=== PATIENT | male | born 1990 | race Caucasian/White ===

== ENCOUNTER 2017-04-24 01:27 | Emergency (ER) | payer MEDICAID ==
[~2017-04-24] VITALS: Ht 182.9 cm; Wt 81.6 kg
[~2017-04-24 01:27] MED LIST: ALBUTEROL0.09 MG/A1 IH; AMOXICILLIN 50500 MG PO; BACTRIM DS 8001 TA1 PO; CIPRO 500MG TA500 MG PO; FLEXERIL10 MG PO; IBU-8800 MG PO; INDOCIN25 MG PO; KEFLEX 500MG.500 MG PO; LISINOPRIL20 MG PO; MOBIC7.5 MG PO; MOTRIN600 M1 PO; NOMEDS XX; PERCOCET 5/3251 EACH PO; PREDNISONE 20MG20 MG PO; PYRIDIUM 200MG200 MG PO; SERTRALINE 50MG50 MG PO; SULFAMETHOXAZOL1 TA6 PO; TRAZADONE HYDR100 MG PO; ZITHROMAX Z-PA250 M1 PO
--- NOTE | 2017-04-24 01:46 | Emergency Room Report ---
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 Clinical Suspician of Infection? Mental Status: Sepsis Risk: Have you (or family members/close friends) recently traveled outside the [place]? If Yes, where/when: Have you had exposure to infectious disease within the past month? TB? Other? Specify: Source patient, RN notes reviewed, family, old records Exam Limitations no limitations Comment pt with lt knee pain as he had twist injury today with post knee pain and popping sd - pt with pain with mov and wt bearing Cardiac Chest Pain Chest pain indicative of cardiac No Timing/Duration this evening Severity moderate ALLERGIES Coded Allergies: acetaminophen (From VICODIN) (01/25/16) hydrocodone (From VICODIN) (01/25/16) Home Medications Active Scripts SULFAMETHOXAZOLE W/TRIMETHOPRI (Bactrim Ds Tab) 1 TAB PO BID #20 TAB Prov: 04/13/16 SULFAMETHOXAZOLE W/TRIMETHOPRI (Bactrim Ds Tab) 1 TABLET PO BID #20 TAB Prov: 01/25/17 Reported Medications Lisinopril 20 MG PO DAILY #30 Sertraline Hcl (Sertraline 50MG) 50 MG PO DAILY #30 TAB History Medical History General CAD? No Angina: No [place]: No Hypertension? Yes Hyperlipidemia? No CHF? No DVT? No PE? No COPD? No Asthma? No Anemia? No GERD? No Gastric ulcers? No GI Bleed? No Hernia? No Thyroid Problems? No Hypothyroidism? No CVA? No Seizures? No Diabetes? No Renal Insuffiency? No End Stage Renal Disease? No UTI? No Stones? No BPH? No GB Disease: No Nephritic Syndrome? No Asplenia? No Hepatitis? No Sickle Cell Disease? No Arthritis? No Migraines? No Cataracts? No Glaucoma? No MRSA? No HIV? No TB? No Anxiety? Yes Depression? Yes Cancer? No More? No Immunization Hx DT/Tetanus < 1 Year Ago Surgical Hx Previous Surgery?N Social History Smoking Hx Packs/day < 1 Pack Alcohol Alcohol: No Drugs none Review of Systems All Other Systems Reviewed and Negative Constitutional denies fever Eyes denies drainage ENT denies: ear discharge, epistaxis, throat pain. Respiratory denies cough, denies shortness of breath, denies wheezing Cardiovascular denies chest pain, denies palpitations, denies syncope Gastrointestinal denies abdominal pain, denies diarrhea, denies vomiting Genitourinary denies: dysuria, frequency, hesitancy, hematuria. Musculoskeletal see HPI, denies back pain, joint pain, denies joint swelling, denies neck pain Skin denies rash Psychiatric/Neurological denies seizure Physical Exam Vital Signs Vital Signs Date Time Temp Pulse Resp B/P Pulse O2 O2 Flow FiO2 Ox Delivery Rate 04/24 0140 98.0 98 14 149/73 98 - WBC >12,000 or <4,000 or 10% bands? 2 or more SIRS Criteria Met? B/P:149/73 MAP:98 Creatinine >2.0? UA output<0.5ml/kg/hr for 2 hrs? Platelet count >100,000? Lactate >2.0mmol/1? INR >1.2 or PTT > than 60 sec? Evidence of Organ Dysfunction? Provider documented clinical suspician of infection? N Sepsis Criteria Count: 1 Sepsis Risk: Low Sepsis Risk General Appearance no apparent distress Eye Exam - bilateral eye PERRL, bilateral eye EOMI Ear, Nose, Throat normal ENT inspection Neck supple Respiratory Status No: respiratory distress. 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 No Departure Departure Time of Disposition 0154 Disposition DC Home or Self Care(routine) Clinical Impression Primary Impression: Left knee sprain Qualifiers: Encounter type: initial encounter Involved ligament of knee: unspecified ligament Qualified Code: S83.92XA - Sprain of unspecified site of left knee, initial encounter Condition STABLE Referrals TRINITY MORA (Family) Patient Instructions DI for Knee Sprain Additional Instructions wt bearing as suyapa and use meds as directed and see pcp for follow up Discharge Counseling Counseled pt/family regarding diagnosis, test results, medications/RX, follow up needs Prescriptions Current Visit Scripts Prednisone (Prednisone 20MG) 20 MG PO BID #10 TAB ED Critical Care Critical Care No at [id number]
[2017-04-24] MEDS ORDERED: PREDNISONE 20MG20 MG PO (01:55)
[2017-04-24 02:16] VITALS: BP 149/73
== END 2017-04-24 02:18 | disposition home or self-care (01) ==
LOC: ER 01:27
DX: S83.92XA Sprain of unspecified site of left knee, initial encounter (principal); X50.1XXA Overexertion from prolonged static or awkward postures, initial encounter; Z88.6 Allergy status to analgesic agent; Z88.5 Allergy status to narcotic agent; Z79.899 Other long term (current) drug therapy; I10 Essential (primary) hypertension

== ENCOUNTER 2017-05-26 16:19 | Emergency (ER) | payer MEDICAID ==
[~2017-05-26] VITALS: Ht 182.9 cm; Wt 86.2 kg
[2017-05-26] MEDS ORDERED: ZADITOR5 ML OP (16:40)
--- NOTE | 2017-05-26 16:52 | Urgent Treatment Center Report ---
History of Present Issue Date/Time Seen by Provider 05/26/17 1635 Visit Reason Pt arrived:Walked Presenting Problem:PT HAS HAD EYE DRAINAGE AND RT EAR FEELING STOPPED UP. NEEDS A REFILL ON HIS BP MEDICATION. Location if Accident: Onset of symptoms date/time:/ or onset unknown for:MEDICAL HX UNKNOWN Have you (or family members/close friends) recently traveled outside the [place]? N If Yes, where/when: Have you had exposure to infectious disease within the past month? TB? Other? Specify: States that he has been having alot of allergy symptoms but he has never been tested for allergies State that he has been having itchy watery eyes with drainage State that last week he felt like his ear was stopped up and couldn't hear out of it that well and wants to get his blood pressure medication refilled ALLERGIES Coded Allergies: acetaminophen (From VICODIN) (01/25/16) hydrocodone (From VICODIN) (01/25/16) Home Medications Reported Medications Lisinopril 20 MG PO DAILY #30 Sertraline Hcl (Sertraline 50MG) 50 MG PO DAILY #30 TAB History Medical History General CAD? No Angina: No [place]: No Hypertension? Yes Hyperlipidemia? No CHF? No DVT? No PE? No COPD? No Asthma? No Anemia? No GERD? No Gastric ulcers? No GI Bleed? No Hernia? No Thyroid Problems? No Hypothyroidism? No CVA? No Seizures? No Diabetes? No Renal Insuffiency? No UTI? No Stones? No BPH? No GB Disease: No Nephritic Syndrome? No Asplenia? No Hepatitis? No Sickle Cell Disease? No Arthritis? No Migraines? No Cataracts? No Glaucoma? No MRSA? No HIV? No TB? No Anxiety? Yes Depression? Yes Cancer? No More? No Immunization HX DT/Tetanus < 1 Year Ago Surgical Hx Previous Surgery?N Social History Smoking Hx Smoker: Current Every Day Smoker Tobacco: Yes Type Cigarettes Packs/day < 1 Pack Alcohol Alcohol: No Review of Systems All Other Systems Reviewed and Negative Eyes drainage ENT ear pain. Physical Exam Vital Signs Vital Signs Date Time Temp Pulse Resp B/P Pulse O2 O2 Flow FiO2 Ox Delivery Rate 05/26 1625 98.7 108 18 154/88 96 General Appearance normal appearance, WD/WN, no apparent distress Eye Exam - bilateral eye PERRL, bilateral eye EOMI Respiratory Status Yes: trachea midline, chest symmetrical, non tender chest. No: respiratory distress. Cardiovascular normal exam, regular rate/rhythm Neurologic alert, normal exam, oriented x 3 Comments drainage noted bilateral eyes, advised they feel itchy and watery Medical Decision Making LABS/Meds/Orders Pt receiving controlled substance in ED? No [facility] Progress Notes Comment [facility], advised that it had been close to a year since he had had blood pressure medication filled, patient informed that he would have to see family doctor for medication to be filled due to lenght of time that he has not taken the medication Departure Departure Time of Disposition 1636 Disposition DC Home or Self Care(routine) Clinical Impression Primary Impression: Seasonal allergies Qualifiers: Chronicity: unspecified Allergic rhinitis trigger: unspecified Qualified Code: J30.2 - Other seasonal allergic rhinitis Condition STABLE Referrals Pati Russell MD (Family): [facility] Patient Instructions Allergic Rhinitis, Nasal Filters May Improve Seasonal Allergy Symptoms Additional Instructions Follow up with family doctor Return if needed Follow up with [facility] for allergy testing Use drops as directed Discharge Counseling Counseled pt/family regarding diagnosis, medications/RX, home care, follow up needs Prescriptions Current Visit Scripts Ketotifen Fumarate (Zaditor) 1 DROP OP BID #1 ML one drop in eyes twice daily at [id number]
[2017-05-26 16:53] VITALS: BP 154/88
--- OUTSIDE RECORDS SUMMARY | 2017-05-29 12:35 | External Medical Summary Rpt | CCD ---
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 Gardner MD (ER) 3 22:33 3 00:50 [facility] EMERGENCY [address] DIMAS ISABEL 1 1 [facility] DEPARTMEN MED CTR T VISIT HIGH/URGE NT SEVERITY EMERGENCY 07381 ST DIMAS ISABEL 1 1 [facility] DEPARTMEN MED CTR T VISIT MODERATE SEVERITY [facility]OSP[facility] - 0 0 [facility]EN INC T EMERGENCY 99239 [facility] 0 0 [facility] DEPARTMEN INC T VISIT LOW/MODER SEVERITY EMERGENCY 23804 LORETTA [facility]U, [address] [facility] SERVICES O T VISIT MODERATE ASSOCIATE SEVERITY S EMERGENCY 36719 EMERGENCY JOCELYNN, 9 9 CARE PEGGY D DEPARTMEN PHYS T VISIT [facility] NT SEVERITY OFFICE 79017 FAMILY VICKIE, OUTPATIEN 9 9 CARE R MARIELLA T VISIT ASSOCIATE 15 S MINUTES OFFICE 41757 FAMILY VICKIE, OUTPATIEN 9 9 CARE R MARIELLA T VISIT ASSOCIATE 15 S MINUTES [facility] - 9 9 [facility] T OFFICE 79129 FAMILY VICKIE, OUTPATIEN 9 9 CARE R MARIELLA T VISIT ASSOCIATE 15 S MINUTES OFFICE 38607 FAMILY VICKIE, OUTPATIEN 8 8 CARE R MARIELLA T VISIT ASSOCIATE 15 S MINUTES OFFICE 56968 FAMILY VICKIE, OUTPATIEN 8 8 CARE R MARIELLA T VISIT ASSOCIATE 15 S MINUTES [facility]OSP[facility] - 8 8 [facility] OUTPATIEN INC T EMERGENCY 16170 [facility] 8 8 [facility] DEPARTMEN INC T VISIT LIMITED/M INOR PROB EMERGENCY 19996 MARCIA HESTER, 8 8 [facility] VISIT ON LOW/MODER SEVERITY [facility]OSPITAL [facility] - 8 8 [facility] OUTPATIEN INC T OFFICE 13968 FAMILY VICKIE, OUTPATIEN 8 8 CARE R MARIELLA T VISIT ASSOCIATE 25 S MINUTES OFFICE 83904 FAMILY VICKIE, OUTPATIEN 8 8 CARE R MARIELLA T VISIT ASSOCIATE 15 S MINUTES OFFICE 75644 FAMILY VICKIE, OUTPATIEN 8 8 CARE R MARIELLA T VISIT ASSOCIATE 15 S MINUTES [facility]OSP[facility] - 8 8 [facility] INC T OFFICE 99655 FAMILY VICKIE, OUTPATIEN 8 8 CARE R MARIELLA T VISIT ASSOCIATE 15 S MINUTES OFFICE 78924 FAMILY VICKIE, OUTPATIEN 8 8 CARE R MARIELLA T VISIT ASSOCIATE 15 S MINUTES OFFICE 02781 FAMILY VICKIE, OUTPATIEN 8 8 CARE R MARIELLA T VISIT ASSOCIATE 15 S MINUTES OFFICE 53346 FAMILY VICKIE, OUTPATIEN 8 8 CARE Kojo WOLFF T VISIT ASSOCIATE 15 S MINUTES EMERGENCY 40108 [facility] 8 8 [facility] DEPARTMEN INC T VISIT LOW/MODER SEVERITY [facility] - 8 8 [facility] OUTPATIEN INC T OFFICE 72057 BRITNEY MCKEON II, OUTPATIEN 8 8 ANTOLIN Stanley NEW 10 PSC MINUTES
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
--- OUTSIDE RECORDS SUMMARY | 2017-05-29 12:39 | External Medical Summary Rpt ---
Author Author [employer], SALVADOR Production Organization [employer] Address Unknown Phone Unavailable Results UA Observa Value Referen Units Interpr Notes Date tion ce etation Range UA Yellow No No No No Sep 08 Color informa informa informa informa 2017 tion in tion in tion in tion in 5:52 PM source source source source data data data data UA Clear Clear No No No Sep 08 Appear informa informa informa 2017 tion in tion in tion in 5:52 PM source source source data data data UA Negativ Negativ No No No Sep 08 Glucose e e informa informa informa 2017 tion in tion in tion in 5:52 PM source source source data data data UA Negativ Negativ No No No Sep 08 Ketones e e informa informa informa 2017 tion in tion in tion in 5:52 PM source source source data data data UA Negativ Negativ No No No Sep 08 Blood e e informa informa informa 2017 tion in tion in tion in 5:52 PM source source source data data data UA pH 7.0 5.0 - No No Referen Sep 08 8.0 informa informa ce 2017 tion in tion in range 5:52 PM source source valid data data for random specime ns only. UA Negativ Negativ No No No Sep 08 Protein e e informa informa informa 2017 tion in tion in tion in 5:52 PM source source source data data data UA 0.2 <=1 No No No Sep 08 Urobili E.U./dL E.U./dL informa informa informa 2017 nogen tion in tion in tion in 5:52 PM source source source data data data UA Negativ Negativ No No No Sep 08 Nitrite e e informa informa informa 2017 tion in tion in tion in 5:52 PM source source source data data data UA Leuk Negativ Negativ No No No Sep 08 Est e e informa informa informa 2017 tion in tion in tion in 5:52 PM source source source data data data UA Spec 1.010 1.001 - No No Referen Sep 08 Grav 1.035 informa informa ce 2017 tion in tion in range 5:52 PM source source valid data data for random specime ns only. Chlamyd/GC TMA Observa Value Referen Units Interpr Notes Date tion ce etation Range Chlamyd Negativ No No No No Sep 10 ia e informa informa informa informa 2017 trachom tion in tion in tion in tion in 10:57 atis source source source source AM data data data data Neisser Negativ No No No Testing Sep 10 ia e informa informa informa 2017 gonorrh tion in tion in tion in methodo 10:57 oeae source source source logy is AM data data data transcr iption mediate d amplifi cation (TMA) using the Aptima Combo 2 assay from [employer].\.br \A negativ e result does not complet alejandrina rule out a Chlamyd ia trachom atis or Neisser ia gonorrh oeae infecti on due to potenti al inhibit ors or levels present below the limit of detecti on by this assay. Results are depende nt on proper collect ion and transpo rt of specime n. This test is indicat ed for medical purpose s only and should not be used for legal or forensi c purpose s.\.br\ \.br\Th e perform ance charact eristic s of this test were validat ed by [facility] are laborat ory. This assay is FDA cleared to test the followi ng specime ns: clinici an-daksha ected endocer vical, vaginal and male urethra l swab specime ns, patient collect ed vaginal specime ns within a clinic setting , Thin Prep Specime ns in Preserv Cyt Solutio n, and first-s tream, unprese rved male urine specime ns. Testing on female urine is not FDA approve d by this methodo logy, but has been develop ed and validat ed by the [facility] are laborat ory. Detaile d methodo logy is availab le upon request . Lipid Scr Observa Value Referen Units Interpr Notes Date tion ce etation Range Cholest 188 <=200 mg/dL No < 200 Aug 13 dominga informa 2015 [Percen tion in 8:25 PM tile] source Desirab data le\.br\ 200 - 239 Borderl ine High\.b r\>= 240 High TRIGLYC 84 <=150 mg/dL No < 150 Aug 13 ERIDES. informa 2015 TOTAL tion in Normal\ 8:25 PM source .br\150 data - 199 Borderl ine High\.b r\200 - 499 High\.b r\ >= 500 Very High CHOLEST 41 >=40 mg/dL No > 60 Aug 13 EROLS.I informa 2014 N HDL tion in Optimal 8:25 PM source \.br\40 data - 60 Accepta ble\.br \ < 40 Low LDL 130 <=100 mg/dL High < 100 Aug 13 Calcula 2015 esther 8:25 PM Optimal \.br\10 0 - 129 Near or above optimal \.br\13 0 - 159 Borderl ine High\.b r\160 - 189 High\.b r\ >= 190 Very High Hemogram Observa Value Referen Units Interpr Notes Date tion ce etation Range LEUKOCY 8.2 4.0 - x10(3)/ No No Aug 13 FCO 11.0 mcL informa informa 2014 tion in tion in 7:53 PM source source data data Erythro 5.12 4.30 - x10(6)/ No No Aug 13 cytes 5.81 mcL informa informa 2014 [#/volu tion in tion in 7:53 PM me] in source source Blood data data by Automat ed count Hemoglo 16.8 13.5 - gm/dL No No Aug 13 bin 17.1 informa informa 2014 [Mass/v tion in tion in 7:53 PM olume] source source in data data Blood Hematoc 49.1 38.9 - % No Aug 13 rit 51.6 informa informa 2015 [Volume tion in tion in 7:53 PM source source Fractio data data n] of Blood by Automat ed count Erythro 95.9 82.5 - fL No Aug 13 cyte 99.8 informa informa 2015 mean tion in tion in 7:53 PM corpusc source source ular data data volume [Entiti c volume] by Automat ed count Erythro 32.9 27.0 - pg No Aug 13 cyte 34.3 informa informa 2014 mean tion in tion in 7:53 PM corpusc source source ular data data hemoglo bin [Entiti c mass] by Automat ed count Erythro 34.3 32.1 - gm/dL No Aug 13 cyte 35.3 informa informa 2015 mean tion in tion in 7:53 PM corpusc source source ular data data hemoglo bin concent ration [Mass/v olume] by Automat ed count Erythro 12.2 11.5 - % No Aug 13 cyte 15.0 informa informa 2014 distrib tion in tion in 7:53 PM ution source source width data data [Ratio] by Automat ed count Platele 265 144 - x10(3)/ No No Aug 13 ts 423 mcL informa informa 2014 [#/volu tion in tion in 7:53 PM me] in source source Blood data data by [employer] count MPV 8.6 6.8 - fL No Aug 13 10.8 informa informa 2014 tion in tion in 7:53 PM source source data data XR RIBS RIGHT W PA CHEST Observa Value Referen Units Interpr Notes Date tion ce etation Range RIGHT No No No No Feb 09 RIBS, informa informa informa informa 2012Feb 09, tion in tion in tion in tion in 4:23 PM 2012 source source source source 04:24:2 data data data data 9 PM\.br\ \.br\IN DICATIO NS: Pain.\. br\\.br \Right rib series shows no fractur e. There is no lytic lesion. There is no\.br\ costoph renic\. br\blun ting. There is no pneumot horax.\ .br\\.b r\IMPRE SSION:\ .br\1. Normal right rib series XR CHEST PA AND LATERAL Observa Value Referen Units Interpr Notes Date tion ce etation Range TEXT PA and No No No No Jan 29 DIAGNOS LATERAL informa informa informa informa 2011 IS CHEST tion in tion in tion in tion in 5:02 PM BATTERY DATED source source source source 01/30/20 data data data data 12COMPA RISON: 9HISTOR Y: Trauma, left-si ded painFIN DINGS:T he heart and mediast inal contour s are within normal limits. The lungs areclea r. Nopneum othorax or pleural effusio n is identif ied.IMP RESSION :Negati ve chest radiogr aphs. XR RIBS LEFT 2 VW Observa Value Referen Units Interpr Notes Date tion ce etation Range TEXT Left No No No No Jan 29 DIAGNOS rib informa informa informa informa 2012 IS series, tion in tion in tion in tion in 5:01 PM BATTERY 4 source source source source total data data data data images, dated 01/30/20 12COMPA RISON: NoneHIS TORY: Trauma, left rib painIMP RESSION :No displac ed fractur e or other signifi cant osseous abnorma lity identif iedin left-si ded ribs.
--- OUTSIDE RECORDS SUMMARY | 2017-05-29 12:39 | External Medical Summary Rpt | CCD ---
Demographics Preferred Language Nauruan Marital Status Unknown Pentecostalism Affiliation Unknown Race Unknown Ethnic Group Unknown Author Author , SALVADOR FRANCO Address Unknown Phone Immunization No patient found.
--- OUTSIDE RECORDS SUMMARY | 2017-05-29 12:39 | External Medical Summary Rpt ---
[...] using the Aptima Combo 2 assay from [employer].\.br \A negativ e result does not [...] of this test were validat ed by [facility] are laborat ory. This assay is FDA [...] develop ed and validat ed by the [facility] are laborat ory. Detaile d methodo logy [...]
--- OUTSIDE RECORDS SUMMARY | 2017-05-29 12:39 | External Medical Summary Rpt | CCD ---
Demographics Preferred Language Ken[place] Marital Status Unknown Tenriism Affiliation Unknown Race Unknown Ethnic Group Unknown Author Author , SALVADOR FRANCO Address Unknown Phone Immunization No patient found.
== END 2017-05-26 16:55 | disposition home or self-care (01) ==
LOC: UTC 16:19
DX: J30.2 Other seasonal allergic rhinitis (principal); I10 Essential (primary) hypertension; F41.8 Other specified anxiety disorders; F17.210 Nicotine dependence, cigarettes, uncomplicated